=== PATIENT | female | born 1950 | race Two or more races ===

== ENCOUNTER 2018-03-05 15:30 | Outpatient (CLI) | payer MEDICARE, MEDICAID | END 2018-03-05 23:59 | disposition home health service (06) | LOC: MSC 15:30 | PROVIDERS: ATTEND Anesthesiology | DX: M16.11 Unilateral primary osteoarthritis, right hip (principal); M54.5 Low back pain; M62.830 Muscle spasm of back; M17.0 Bilateral primary osteoarthritis of knee; M25.9 Joint disorder, unspecified; N18.6 End stage renal disease; I12.0 Hypertensive chronic kidney disease with stage 5 chronic kidney disease or end stage renal disease; Z79.891 Long term (current) use of opiate analgesic; Z99.2 Dependence on renal dialysis ==